=== PATIENT | female | born 1975 | race Caucasian/White ===

== ENCOUNTER 2017-07-23 12:04 | Outpatient (CLI) | payer BC ==
[2017-07-23 12:59] LABS: BASOPHILS % (AUTO) 0.4 % (0.0-2.0); EOSINOPHILS # (AUTO) 0.2 K/uL (0.0-0.7); EOSINOPHILS % (AUTO) 1.9 % (0.0-7.0); HEMATOCRIT 39.4 % (37-47); HEMOGLOBIN 12.4 G/DL (12.0-16.0); LYMPHOCYTES # (AUTO) 2.5 K/UL (0.8-4.8); LYMPHOCYTES % (AUTO) 26.5 % (20.5-51.5); MEAN CORPUSCULAR HEMOGLOBIN 28.2 UUG (27.0-31.0); MEAN CORPUSCULAR HGB CONC 31 g/dL (32.0-37.0); MEAN CORPUSCULAR VOLUME 89.6 FL (81.0-99.0); MONOCYTES # (AUTO) 0.5 K/UL (0.1-1.30); MONOCYTES % (AUTO) 5.6 % (0.0-11.0); NEUTROPHILS # (AUTO) 6.2 K/UL (1.8-8.9); NEUTROPHILS % (AUTO) 65.6 % (38.5-71.5); PLATELET COUNT (AUTO) 267 K/UL (150-450); WHITE BLOOD COUNT (AUTO) 9.4 K/UL (4.0-11.2)
[2017-07-23 13:21] LABS: BILIRUBIN,TOTAL 0.3 mg/dL (0.2-1.0); CREATININE 0.9 mg/dL (0.6-1.3); POTASSIUM 4.4 mmol/L (3.5-5.1); TOTAL PROTEIN, SERUM 7.9 g/dL (6.4-8.2)
[2017-07-23 14:29] LABS: THYROID STIMULATING HORMONE 2.731 mIU/mL (0.358-3.740)
[2017-07-25 08:06] LABS: VIT D, 25-HYDROXY 17.7 ng/mL (30.0-100.0)
== END 2017-07-23 23:59 | disposition home or self-care (01) ==
LOC: LAB 12:04
PROVIDERS: ATTEND Family Medicine
DX: Z98.84 Bariatric surgery status (principal)
CPT/HCPCS: 36415; 82306; 82746; 83550; 84443; 85025; 86677

== ENCOUNTER 2017-11-26 19:37 | Emergency (ER) | payer BC, OTHER ==
[~2017-11-26] VITALS: Ht 165.1 cm; Wt 113.4 kg
[2017-11-26] MEDS ORDERED: DICLOFENAC SOD (20:58)
--- NOTE | 2017-11-26 21:52 | NUR ---
Patient discharged to home in stable conditon. Written and verbal after care instructions given. Patient verbalizes understanding of instructions.
== END 2017-11-26 21:53 | disposition home or self-care (01) ==
LOC: ER 19:41
DX: B34.9 Viral infection, unspecified (principal); F17.210 Nicotine dependence, cigarettes, uncomplicated; Z88.5 Allergy status to narcotic agent; Z79.899 Other long term (current) drug therapy; Z90.49 Acquired absence of other specified parts of digestive tract
CPT/HCPCS: 99283; A4663

== ENCOUNTER → 2018-01-21 | Outpatient (CLI) | payer BC, OTHER ==
[~2018-01-21] MED LIST: DICLOFENAC SOD
[2018-01-21 11:03] LABS: BASOPHILS % (AUTO) 0.5 % (0.0-2.0); EOSINOPHILS # (AUTO) 0.2 K/uL (0.0-0.7); EOSINOPHILS % (AUTO) 2.1 % (0.0-7.0); HEMATOCRIT 37.4 % (31.2-41.9); HEMOGLOBIN 12.4 g/dL (10.9-14.3); LYMPHOCYTES # (AUTO) 2.3 K/uL (20.0-40.0); LYMPHOCYTES % (AUTO) 28.4 % (20.5-51.5); MEAN CORPUSCULAR HEMOGLOBIN 29.2 uug (24.7-32.8); MEAN CORPUSCULAR HGB CONC 33 g/dL (32.3-35.6); MEAN CORPUSCULAR VOLUME 88.2 fL (75.5-95.3); MONOCYTES # (AUTO) 0.5 K/uL (2.0-10.0); MONOCYTES % (AUTO) 6.5 % (0.0-11.0); NEUTROPHILS # (AUTO) 5.2 K/uL (1.8-8.9); NEUTROPHILS % (AUTO) 62.5 % (38.5-71.5); PLATELET COUNT (AUTO) 243 K/uL (179-408); RED BLOOD CELL COUNT(AUTO) 4.24 MIL/uL (3.63-4.92); WHITE BLOOD COUNT (AUTO) 8.3 K/uL (3.8-11.8)
[2018-01-21 11:26] LABS: BILIRUBIN,TOTAL 0.3 mg/dL (0.2-1.0); CREATININE 0.8 mg/dL (0.6-1.3); POTASSIUM 4.5 mmol/L (3.5-5.1); TOTAL PROTEIN, SERUM 7.8 g/dL (6.4-8.2)
[2018-01-21 12:58] LABS: THYROID STIMULATING HORMONE 2.398 mIU/mL (0.358-3.740)
[2018-01-21 14:12] LABS: *BILIRUBIN,URIN NEGATIVE (NEGATIVE); *BLOOD, URINE NEGATIVE (NEGATIVE); *CLARITY,URINE CLEAR (CLEAR); *COLOR,URINE YELLOW (YELLOW); *KETONES,URINE NEGATIVE (NEGATIVE); *PROTEIN,URINE NEGATIVE (NEGATIVE); *UROBILINOGEN,URINE 0.2 E.U./dl (NORMAL); LEUKOCYTE ESTERASE ,URINE NEGATIVE (NEGATIVE); NITRITE, URINE NEGATIVE (NEGATIVE); UGLUCOSE NEGATIVE (NEGATIVE)
[2018-01-21 14:25] LABS: RBC,URINE 0-3 /HPF (0-3); WBC,URINE 0-3 /HPF (0-3)
[2018-01-21 14:26] LABS: BACTERIA,URINE FEW /HPF (NONE SEEN); SQUAMOUS EPITHELIAL CELL,UR MANY /HPF (NONE SEEN)
[2018-01-22 04:06] LABS: TRIIODOTHYRONINE, FREE 3.3 pg/mL (2.0-4.4)
[2018-01-22 05:10] LABS: VIT D, 25-HYDROXY 17.3 ng/mL (30.0-100.0)
[2018-01-22 13:38] LABS: *OCCULT BLOOD STOOL NEGATIVE (NEGATIVE)
== END | disposition home or self-care (01) ==
LOC: LAB 10:38
DX: K21.9 Gastro-esophageal reflux disease without esophagitis (principal); R53.81 Other malaise; R53.83 Other fatigue; E55.9 Vitamin D deficiency, unspecified
CPT/HCPCS: 36415; 82306; 84443; 84481; 85025; 87086

== ENCOUNTER 2018-01-27 09:04 | Outpatient (CLI) | payer BC, OTHER ==
[2018-01-27 11:29] LABS: *RHEUMATOID FACTOR SCREEN NEGATIVE (NEGATIVE)
[2018-01-28 19:06] LABS: *SJOGREN'S ANTI-SS-A <0.2 AI (0.0-0.9); *SJOGREN'S ANTI-SS-B <0.2 AI (0.0-0.9); *SMITH ANTIBODIES <0.2 AI (0.0-0.9); ANTI-DNA(DS) AB, QN 5 IU/mL (0-9)
== END 2018-01-27 23:59 | disposition home or self-care (01) ==
LOC: LAB 09:04
PROVIDERS: ATTEND Radiology Diagnostic Radiology
DX: R06.00 Dyspnea, unspecified (principal); D64.9 Anemia, unspecified; M79.1 Myalgia
CPT/HCPCS: 36415; 71046; 82525; 82746; 85651; 86038; 86140; 86430

== ENCOUNTER → 2018-06-03 | Outpatient (CLI) | payer BC, OTHER | END | disposition home or self-care (01) | LOC: RAD 14:06 | DX: M25.551 Pain in right hip (principal); M25.552 Pain in left hip | CPT/HCPCS: 73521 ==

== ENCOUNTER 2018-12-15 19:30 | Inpatient (IN) | payer BC, OTHER ==
[~2018-12-15] VITALS: Ht 165.1 cm; Wt 123.4 kg
[2018-12-15] MEDS ORDERED: GABAPENTIN 100 MG CAPSULE (19:46)
[2018-12-15] MEDS ORDERED: GABAPENTIN 300 MG CAPSULE (19:46)
[2018-12-15] MEDS ORDERED: IBUP800T54 PO (19:46)
[2018-12-15] MEDS ORDERED: ASPIRIN 325 MG TABLET ONE (19:59)
[2018-12-15] MEDS ORDERED: IV NORMAL SALINE 1000 ML BAG IV ONE (20:00)
[2018-12-15] MEDS ORDERED: ASPIRIN 325 MG TABLET PO ONE (20:00)
[2018-12-15] MEDS ORDERED: NITROGLYCERIN 0.4 MG/TAB BOTTLE SL ONE ×2 (20:00)
[2018-12-15 20:10] LABS: BASOPHILS # (AUTO) 0.1 K/uL (0.0-8.0); BASOPHILS % (AUTO) 0.6 % (0.0-2.0); EOSINOPHILS # (AUTO) 0.3 K/uL (0.0-0.7); EOSINOPHILS % (AUTO) 2.4 % (0.0-7.0); HEMATOCRIT 35.5 % (31.2-41.9); HEMOGLOBIN 11.6 g/dL (10.9-14.3); LYMPHOCYTES # (AUTO) 2.8 K/uL (20.0-40.0); LYMPHOCYTES % (AUTO) 22.8 % (20.5-51.5); MEAN CORPUSCULAR HGB CONC 33 g/dL (32.3-35.6); MEAN CORPUSCULAR VOLUME 86.1 fL (75.5-95.3); MONOCYTES # (AUTO) 0.8 K/uL (2.0-10.0); MONOCYTES % (AUTO) 6.2 % (0.0-11.0); NEUTROPHILS # (AUTO) 8.4 K/uL (1.8-8.9); PLATELET COUNT (AUTO) 234 K/uL (179-408); RED BLOOD CELL COUNT(AUTO) 4.12 MIL/uL (3.63-4.92); WHITE BLOOD COUNT (AUTO) 12.4 K/uL (3.8-11.8)
[2018-12-15 20:19] LABS: CREATININE 0.9 mg/dL (0.6-1.3); POTASSIUM 3.9 mmol/L (3.5-5.1)
[2018-12-15 20:26] LABS: BILIRUBIN,DIRECT 0.1 mg/dL (0.0-0.2); BILIRUBIN,TOTAL 0.2 mg/dL (0.2-1.0); TOTAL PROTEIN, SERUM 8.1 g/dL (6.4-8.2)
[2018-12-15] MEDS ORDERED: ONDANSETRON 4 MG/2 ML VIAL IV PRN (22:00)
[2018-12-15] MEDS ORDERED: ZOLPIDEM 5 MG TABLET PO PRN (22:00)
[2018-12-15 22:25] VITALS: BP 144/75
--- NOTE | 2018-12-15 22:30 | NUR ---
RECEIVED PATIENT, ADMISSION ASSESSMENT COMPLETED. PATIENT SEEN BY , RECEIVED ORDERS AND CARRIED OUT. [employer] INS[employer]ANCE UNDERWRITER APPLIED. PATIENT IS SINUS RHYTHM. DENIES CHEST PAIN AT THIS TIME. IV PATENT AND INTACT ON RIGHT FOREARM. VS ARE STABLE. CALL LIGHT WITHIN REACH. LATE NIGHT DINNER TRAY PROVIDED. KEPT PATIENT COMFORTABLE. ROOM FREE OF CLUTTER. NIGHT MEDICATION PROVIDED AND TOLERATED WELL. WILL CONTINUE TO MONITOR.
[2018-12-15] MEDS: GABAPENTIN 300 MG CAPSULE PO SCH (22:32)
[2018-12-15] MEDS: ACETAMINOPHEN 325 MG TABLET PO PRN (22:32)
[2018-12-15] MEDS ORDERED: diphenhydrAMINE 50 MG CAPSULE PO PRN (22:45)
--- NOTE | 2018-12-15 23:00 | NUR ---
Patient c/o headache, Tylenol 650 mg po given. Discussed about side effects of Nitroglycerin pill. patient verbalized understanding.
[2018-12-16] VITALS: BP 144/75
--- NOTE | 2018-12-16 | NUR ---
Patient stated slight relief from Tylenol. Ice pack provided. Sinus rhythm on Tele.
[2018-12-16 04:00] VITALS: BP 119/59
[2018-12-16] MEDS: PANTOPRAZOLE SODIUM 40 MG TABLET.DR PO SCH (06:15)
[2018-12-16] MEDS: ACETAMINOPHEN 325 MG TABLET PO PRN ×2 (06:16→17:35)
--- NOTE | 2018-12-16 06:30 | NUR ---
PATIENT STILL C/O ON & OFF HEADACHE, TYLENOL 650 MG P.O ADM. DENIES CHEST PAIN AT THIS TIME. SINUS RHYTHM ON TELE
[2018-12-16 07:07] LABS: BASOPHILS # (AUTO) 0.1 K/uL (0.0-8.0); BASOPHILS % (AUTO) 0.8 % (0.0-2.0); EOSINOPHILS # (AUTO) 0.3 K/uL (0.0-0.7); EOSINOPHILS % (AUTO) 3.2 % (0.0-7.0); HEMATOCRIT 34.1 % (31.2-41.9); HEMOGLOBIN 11.3 g/dL (10.9-14.3); LYMPHOCYTES # (AUTO) 2.3 K/uL (20.0-40.0); LYMPHOCYTES % (AUTO) 27.8 % (20.5-51.5); MEAN CORPUSCULAR HEMOGLOBIN 28.7 uug (24.7-32.8); MEAN CORPUSCULAR HGB CONC 33 g/dL (32.3-35.6); MEAN CORPUSCULAR VOLUME 86.9 fL (75.5-95.3); MONOCYTES # (AUTO) 0.6 K/uL (2.0-10.0); MONOCYTES % (AUTO) 7.1 % (0.0-11.0); NEUTROPHILS % (AUTO) 61.1 % (38.5-71.5); PLATELET COUNT (AUTO) 220 K/uL (179-408); RED BLOOD CELL COUNT(AUTO) 3.93 MIL/uL (3.63-4.92); WHITE BLOOD COUNT (AUTO) 8.1 K/uL (3.8-11.8)
[2018-12-16 07:15] LABS: CREATININE 0.7 mg/dL (0.6-1.3); PHOSPHOROUS 3.7 mg/dL (2.5-4.9)
--- NOTE | 2018-12-16 07:29 | NUR ---
PATIENT AO 4, NO DISTRESS, COMPLAINED OF HEADACHE AND ON AND OFF CHEST PAIN SAFETY REINFORCED
[2018-12-16 07:34] LABS: THYROID STIMULATING HORMONE 3.003 mIU/mL (0.358-3.740)
[2018-12-16] MEDS: ASPIRIN EC 81 MG TABLET.DR PO SCH (08:27)
[2018-12-16] MEDS: GABAPENTIN 100 MG CAPSULE PO SCH ×2 (08:30→17:00)
[2018-12-16] MEDS ORDERED: ONDANSETRON 4 MG/2 ML VIAL IV ONE (09:59)
[2018-12-16] MEDS: MORPHINE SULFATE 2 MG/1 ML DISP.SYRIN IV PRN (10:52)
[2018-12-16 11:04] VITALS: BP 120/73
[2018-12-16 12:00] LABS: *BILIRUBIN,URIN NEGATIVE (NEGATIVE); *CLARITY,URINE CLEAR (CLEAR); *COLOR,URINE YELLOW (YELLOW); *KETONES,URINE NEGATIVE (NEGATIVE); *UROBILINOGEN,URINE 0.2 E.U./dl (NORMAL); LEUKOCYTE ESTERASE ,URINE NEGATIVE (NEGATIVE); NITRITE, URINE NEGATIVE (NEGATIVE); PH,URINE 5.5 (5.0-8.0); UGLUCOSE NEGATIVE (NEGATIVE)
[2018-12-16 12:05] LABS: *BLOOD, URINE TRACE LYSED (NEGATIVE)
[2018-12-16 12:12] LABS: BACTERIA,URINE FEW /HPF (NONE SEEN); SQUAMOUS EPITHELIAL CELL,UR FEW /HPF (NONE SEEN)
[2018-12-16 12:13] LABS: RBC,URINE 0-3 /HPF (0-3); WBC,URINE 0-3 /HPF (0-3)
[2018-12-16] MEDS: KETOROLAC TROMETHAMINE 30 MG INJ IVP PRN ×2 (14:23→20:08)
[2018-12-16 15:05] VITALS: BP 116/50
--- NOTE | 2018-12-16 16:32 | NUR ---
[facility] ambulance set for picking crew supervisor on 12/17/18 at 0800 to take patient to [facility] for CTA. Trip #[id number]
--- NOTE | 2018-12-16 18:28 | NUR ---
Patient is cooperative AO 4, no distress , headache complained and Kerol was successful with relive, Tylenol was given in between dosages No reaction to med noted Safety maintained this shift
[2018-12-16 19:23] VITALS: BP 120/66
--- NOTE | 2018-12-16 19:30 | NUR ---
Received patient awake, alert, oriented and ambulatory. Patient is not in any form of distress. Noted with IV access, intact. Noted patient for CT Angiogram and EGD tomorrow morning, will instruct patient to remain NPO after midnight. Will monitor for recurrence of chest pain, headache and nausea.
[2018-12-16] MEDS: METOPROLOL TARTRATE 50 MG TABLET PO SCH (20:07)
[2018-12-16] MEDS: GABAPENTIN 300 MG CAPSULE PO SCH (20:17)
[2018-12-16] MEDS ORDERED: IV D5 1/2 NS 1000 ML 1,000 ML IV PRN (21:30)
--- NOTE | 2018-12-16 22:30 | NUR ---
Another IV access started on the left forearm,20g in preparation for CT angiogram this morning.
[2018-12-16 23:49] VITALS: BP 102/46
[2018-12-17] MEDS: KETOROLAC TROMETHAMINE 30 MG INJ IVP PRN ×2 (03:11→12:42)
[2018-12-17 03:38] VITALS: BP 127/65
--- NOTE | 2018-12-17 06:00 | NUR ---
Stool sample sent for occult blood. Patient only able to sleep well for 2-3 hours. Maintained on NPO after midnight for procedures this morning. Patient to be picked up at 0800. Patient was able to take a shower. Noted she now has IV accesses on each arm, both patent and intact. Attended all needs. Pain medication given for headache. Ensured safety and comfort.
[2018-12-17] MEDS: PANTOPRAZOLE SODIUM 40 MG TABLET.DR PO SCH (06:06)
[2018-12-17] MEDS: MORPHINE SULFATE 2 MG/1 ML DISP.SYRIN IV PRN (06:38)
--- NOTE | 2018-12-17 07:30 | NUR ---
PATIENT IS AO 4, NO DISTRESS, SAFETY REINFORCED, TWO IV ACCESS FOR ANGIO, AMBULANCE SCHEDULED FOR 0800
[2018-12-17] MEDS: GABAPENTIN 100 MG CAPSULE PO SCH ×2 (07:59→17:00)
[2018-12-17] MEDS: ASPIRIN EC 81 MG TABLET.DR PO SCH (07:59)
--- NOTE | 2018-12-17 08:00 | NUR ---
AMBULANCE TOOK THE PATIENT, ALL THE MEDS WERE HELD INCLUDING METOPROLOL BC HR WAS BELOW 60
[2018-12-17] MEDS: METOPROLOL TARTRATE 50 MG TABLET PO SCH (08:28)
[2018-12-17 10:09] LABS: *OCCULT BLOOD STOOL NEGATIVE (NEGATIVE)
[2018-12-17] MEDS ORDERED: FENTANYL CITRATE 100 MCG/2 ML AMPUL ONE ×2 (10:56→17:24)
[2018-12-17] MEDS ORDERED: MIDAZOLAM HCL 2 MG/2 ML VIAL ONE ×2 (10:57→17:23)
[2018-12-17 11:00] VITALS: BP 122/68
--- NOTE | 2018-12-17 12:00 | NUR ---
PATIENT IS BACK FROM ANGIO VS WNL
[2018-12-17 15:02] VITALS: BP 128/57
--- NOTE | 2018-12-17 18:00 | NUR ---
PATIENT WENT TO EGD BY BED
--- NOTE | 2018-12-17 19:13 | NUR ---
PATIENT IS AO 4, NO DISTRESS, SAFETY REINFORCED, TWO IV ACCESS, AT EGD AT THE MOMENT SAFETY MAINTAINED
[2018-12-17 19:50] VITALS: BP 125/48
--- NOTE | 2018-12-17 20:00 | NUR ---
Received patient back from EGD procedure, patient is alert, oriented and ambulatory and in stable condition. Noted still with IV access at right arm. Patient advised on clear liquid diet and to progress diet as tolerated. Patient requesting to be discharged today, awaiting MD orders. Will continue to monitor.
[2018-12-17] MEDS ORDERED: ZOLP5TAB8 PO (20:51)
[2018-12-17] MEDS ORDERED: LIPA1CAP15 PO (20:51)
[2018-12-17] MEDS ORDERED: PANT40TA2 PO (20:51)
--- NOTE | 2018-12-17 21:22 | NUR ---
Noted with discharge order. Processed discharge papers and had patient signed. Prescription and written instructions handed over to patient. Patient removed her IV access. Patient discharged accompanied by her daughter in stable condition.
[2018-12-17] MEDS ORDERED: LIDOCAINE-MPF 2% 5 ML VIAL IJ ONE (21:24)
[2018-12-17] MEDS ORDERED: IV LACTATED RINGERS SOLUTION 1,000 ML BAG IV ONE (21:24)
[2018-12-17] MEDS ORDERED: PROPOFOL 200 MG/20 ML BOTTLE IV ONE (21:24)
[2018-12-17] MEDS ORDERED: STERILE WATER FOR INJ IV ONE (21:24)
== END 2018-12-17 21:25 | disposition home or self-care (01) | DRG 394 ==
LOC: ER 19:32 → TELE3 21:42 → MEDSURG3 12-17 16:00
PROVIDERS: ADMIT Internal Medicine; ATTEND Internal Medicine
PROC: 0DB98ZX Excision of Duodenum, Via Natural or Artificial Opening Endoscopic, Diagnostic (ICD-10-PCS; principal; 2018-12-17)
PROC: 0DB48ZX Excision of Esophagogastric Junction, Via Natural or Artificial Opening Endoscopic, Diagnostic (ICD-10-PCS; principal; 2018-12-17)
PROC: B2211ZZ Computerized Tomography (CT Scan) of Multiple Coronary Arteries using Low Osmolar Contrast (ICD-10-PCS; principal; 2018-12-17)
PROC: 0D738ZZ Dilation of Lower Esophagus, Via Natural or Artificial Opening Endoscopic (ICD-10-PCS; principal; 2018-12-17)
DX: K95.09 Other complications of gastric band procedure (principal); Z68.42 Body mass index [BMI] 45.0-49.9, adult; K22.2 Esophageal obstruction; K29.60 Other gastritis without bleeding; K21.0 Gastro-esophageal reflux disease with esophagitis; Z98.84 Bariatric surgery status; Y83.2 Surgical operation with anastomosis, bypass or graft as the cause of abnormal reaction of the patient, or of later complication, without mention of misadventure at the time of the procedure; Y92.89 Other specified places as the place of occurrence of the external cause; Z87.891 Personal history of nicotine dependence; E66.01 Morbid (severe) obesity due to excess calories; R73.03 Prediabetes; E78.5 Hyperlipidemia, unspecified; Z82.49 Family history of ischemic heart disease and other diseases of the circulatory system; Z83.49 Family history of other endocrine, nutritional and metabolic diseases; Z82.5 Family history of asthma and other chronic lower respiratory diseases; M19.90 Unspecified osteoarthritis, unspecified site; I10 Essential (primary) hypertension; G89.29 Other chronic pain; M54.30 Sciatica, unspecified side; D72.829 Elevated white blood cell count, unspecified
CPT/HCPCS: 36415; 70030-TC; 71045; 83550; 83735; 84100; 84443; 85025; 85730; 87086; 88342; 93005; 93307; A4217; A4663; G0378; J1885; J2250; J2270; J2405; J3010; J3490; J7030; J7120; Q0163

== ENCOUNTER 2019-10-01 08:42 | Emergency (ER) | END 2019-10-01 09:29 | disposition home or self-care (01) | DX: H66.91 Otitis media, unspecified, right ear (principal); J40 Bronchitis, not specified as acute or chronic; J02.9 Acute pharyngitis, unspecified; Z79.899 Other long term (current) drug therapy ==

== ENCOUNTER 2020-01-10 13:23 | Emergency (ER) | payer BC, OTHER ==
[~2020-01-10 13:23] MED LIST changes: -DICLOFENAC SOD; +GABAPENTIN 100 MG CAPSULE; +GABAPENTIN 300 MG CAPSULE; +LIPA1CAP15 PO; +PANT40TA2 PO; +ZOLP5TAB8 PO
--- NOTE | 2020-01-10 14:15 | NUR ---
nasal swab for covid done and sent to lab
== END 2020-01-10 14:16 | disposition home or self-care (01) ==
LOC: ER 13:23
DX: Z03.818 Encounter for observation for suspected exposure to other biological agents ruled out (principal)

== ENCOUNTER 2020-01-12 13:17 | Emergency (ER) | payer BC, OTHER ==
[~2020-01-12] VITALS: Ht 167.6 cm; Wt 90.7 kg
--- NOTE | 2020-01-12 13:52 | NUR ---
PATIENT WAS SEEN BY MD. SHE IS AWAKE AND ALERT ON NO DISTRESS. NO SOB OR DIFFICULTY BREATHING REPORTED.
[2020-01-12] MEDS ORDERED: IBUPROFEN 800 MG TABLET ONE (13:57)
[2020-01-12] MEDS ORDERED: IBUPROFEN 800 MG TABLET PO ONE (14:00)
--- NOTE | 2020-01-12 14:22 | NUR ---
MEDICATION GIVEN ORDERED. CORONAVIRUS SWAB DONE. DC, RX AND FOLLOW UP INSTRUCTIONS GIVEN AND EXPLAINED TO PATIENT WHO STATES SHE UNDERSTANDS ALL INSTRUCTIONS
== END 2020-01-12 14:45 | disposition home or self-care (01) ==
LOC: ER 13:17
DX: R05 Cough (principal); Z20.828 Contact with and (suspected) exposure to other viral communicable diseases; R07.81 Pleurodynia; M35.3 Polymyalgia rheumatica
CPT/HCPCS: 36415; 71045; A4663

== ENCOUNTER 2020-04-20 11:47 | Emergency (ER) | payer BC, OTHER ==
[~2020-04-20] VITALS: Ht 167.6 cm; Wt 90.7 kg
[2020-04-20] MEDS ORDERED: DIPH25CA83 PO (12:03)
[2020-04-20] MEDS ORDERED: GABA300C PO (12:03)
[2020-04-20 12:11] LABS: BASOPHILS # (AUTO) 0.1 K/uL (0.0-8.0); BASOPHILS % (AUTO) 0.6 % (0.0-2.0); EOSINOPHILS # (AUTO) 0.2 K/uL (0.0-0.7); EOSINOPHILS % (AUTO) 2.1 % (0.0-7.0); HEMATOCRIT 39.9 % (31.2-41.9); HEMOGLOBIN 12.8 g/dL (10.9-14.3); LYMPHOCYTES # (AUTO) 2.1 K/uL (20.0-40.0); LYMPHOCYTES % (AUTO) 22.3 % (20.5-51.5); MEAN CORPUSCULAR HEMOGLOBIN 27.7 uug (24.7-32.8); MEAN CORPUSCULAR HGB CONC 32 g/dL (32.3-35.6); MEAN CORPUSCULAR VOLUME 86.5 fL (75.5-95.3); MONOCYTES # (AUTO) 0.5 K/uL (2.0-10.0); MONOCYTES % (AUTO) 5.5 % (0.0-11.0); NEUTROPHILS # (AUTO) 6.6 K/uL (1.8-8.9); NEUTROPHILS % (AUTO) 69.5 % (38.5-71.5); PLATELET COUNT (AUTO) 266 K/uL (179-408); RED BLOOD CELL COUNT(AUTO) 4.62 MIL/uL (3.63-4.92); WHITE BLOOD COUNT (AUTO) 9.5 K/uL (3.8-11.8)
--- NOTE | 2020-04-20 12:14 | NUR ---
Patient is AOx4, c/o intermittent feelings of palpitations, "shivers", chills, tingling sensation to bilateral upper shoulders radiating to both arms with feelings of anxiety, denies chest pains, no nausea, skin is warm and dry, respiration:easy. Maintained on continuous cardiac & spO2 monitoring with alarms set, on & audible.
[2020-04-20 12:21] LABS: MAGNESIUM 2.3 mg/dL (1.8-2.4)
[2020-04-20 12:22] LABS: CREATININE 0.9 mg/dL (0.6-1.3)
[2020-04-20 12:28] LABS: BILIRUBIN,DIRECT 0.1 mg/dL (0.0-0.2); BILIRUBIN,TOTAL 0.3 mg/dL (0.2-1.0); TOTAL PROTEIN, SERUM 8.2 g/dL (6.4-8.2)
[2020-04-20 12:59] LABS: THYROID STIMULATING HORMONE 2.062 mIU/mL (0.358-3.740)
--- NOTE | 2020-04-20 13:24 | NUR ---
Patient is resting comfortably on gurney while using her personal electronic device, NAD, pending discharge papers.
--- NOTE | 2020-04-20 13:39 | NUR ---
No tachycardic episodes while in ER, for discharge@this time.
--- NOTE | 2020-04-20 13:40 | NUR ---
Copies of all the tests' results were given to patient. COVID-19 results pending. Patient gave her reliable contact number for this result. Patient discharged to home in stable condition & steady gait. Written and verbal after care instructions given to patient. Patient verbalized understanding & compliance of instructions. Stressed follow up with primary doctor or return to ER for worsening s/s.
== END 2020-04-20 13:44 | disposition home or self-care (01) ==
LOC: ER 11:47
DX: R00.0 Tachycardia, unspecified (principal); R00.2 Palpitations; R94.31 Abnormal electrocardiogram [ECG] [EKG]; M35.3 Polymyalgia rheumatica; Z82.49 Family history of ischemic heart disease and other diseases of the circulatory system; Z20.828 Contact with and (suspected) exposure to other viral communicable diseases; R25.1 Tremor, unspecified; Z98.84 Bariatric surgery status; F41.9 Anxiety disorder, unspecified; F32.9 Major depressive disorder, single episode, unspecified; Z79.899 Other long term (current) drug therapy
CPT/HCPCS: 36415; 70030-TC; 83735; 84443; 85025; 93005; A4663; J7030

== ENCOUNTER 2020-06-20 15:29 | Emergency (ER) | payer BC, OTHER ==
[~2020-06-20] VITALS: Ht 167.6 cm; Wt 90.7 kg
[~2020-06-20 15:29] MED LIST changes: +DIPH25CA83 PO; +GABA300C PO; -GABAPENTIN 100 MG CAPSULE; -GABAPENTIN 300 MG CAPSULE; -LIPA1CAP15 PO; -ZOLP5TAB8 PO
--- NOTE | 2020-06-20 17:19 | NUR ---
Patient is resting comfortably on gurney while using using her personal electronic device.
--- NOTE | 2020-06-20 17:38 | NUR ---
Patient discharged to home in stable condition. Written and verbal after care instructions given to patient. Patient verbalized understanding & compliance of instructions. Stressed follow up with her primary doctor or return to ER for worsening s/s.
== END 2020-06-20 17:38 | disposition home or self-care (01) ==
LOC: ER 15:29
DX: R51 Headache (principal); R05 Cough; R53.83 Other fatigue; Z20.828 Contact with and (suspected) exposure to other viral communicable diseases; M35.3 Polymyalgia rheumatica; Z79.899 Other long term (current) drug therapy
CPT/HCPCS: 71045; 99284; U0003; A4663

== ENCOUNTER 2020-07-21 10:51 | Emergency (ER) | payer BC, OTHER ==
[~2020-07-21] VITALS: Ht 167.6 cm; Wt 90.7 kg
--- NOTE | 2020-07-21 11:05 | NUR ---
Dr. Woodruff at bedside for MSE
--- NOTE | 2020-07-21 11:16 | NUR ---
Patient unable to give urine at this time. Patient agrees to sign waiver form
--- NOTE | 2020-07-21 11:59 | NUR ---
Patient discharged to home in stable condition. Written and verbal after care instructions given. Patient verbalizes understanding of instructions. Stressed follow up or return to ER for worsening s/s.
[2020-07-21 12:00] VITALS: BP 134/95
== END 2020-07-21 12:00 | disposition home or self-care (01) ==
LOC: ER 10:51
DX: M51.17 Intervertebral disc disorders with radiculopathy, lumbosacral region (principal); M35.3 Polymyalgia rheumatica; Z79.899 Other long term (current) drug therapy; M43.8X6 Other specified deforming dorsopathies, lumbar region; S32.028S Other fracture of second lumbar vertebra, sequela; X58.XXXS Exposure to other specified factors, sequela
CPT/HCPCS: 72100; A4663

== ENCOUNTER 2020-10-18 20:29 | Emergency (ER) | payer BC, OTHER ==
[~2020-10-18 20:29] MED LIST changes: +SERT50TA PO
--- NOTE | 2020-10-18 21:01 | NUR ---
PT CALLED 3 TIMES NO ANSWER. PT LEFT W/O BEING TRIAGED
== END 2020-10-18 21:02 | disposition left against medical advice (07) ==
LOC: ER 20:31
DX: Z75.3 Unavailability and inaccessibility of health-care facilities (principal)

== ENCOUNTER 2021-06-18 15:05 | Outpatient (CLI) | payer BC, OTHER ==
[2021-06-18 15:32] LABS: HEMATOCRIT 38.5 % (31.2-41.9); MEAN CORPUSCULAR HEMOGLOBIN 29.8 uug (24.7-32.8); PLATELET COUNT (AUTO) 234 K/uL (179-408)
[2021-06-18 15:44] LABS: BILIRUBIN,DIRECT 0.1 mg/dL (0.0-0.2); BILIRUBIN,TOTAL 0.3 mg/dL (0.2-1.0); TOTAL PROTEIN, SERUM 7.9 g/dL (6.4-8.2)
[2021-06-18 15:54] LABS: THYROID STIMULATING HORMONE 2.009 mIU/mL (0.358-3.740)
== END 2021-06-18 23:59 | disposition home or self-care (01) ==
LOC: LAB 15:05
PROVIDERS: ATTEND Obstetrics & Gynecology
DX: Z20.2 Contact with and (suspected) exposure to infections with a predominantly sexual mode of transmission (principal)
CPT/HCPCS: 36415; 84443; 85025; 86592; 86694; 86803; 87806

== ENCOUNTER 2021-09-20 17:07 | Outpatient (CLI) | payer BC, OTHER ==
[2021-09-20 17:36] LABS: HEMATOCRIT 36.6 % (31.2-41.9); MEAN CORPUSCULAR HEMOGLOBIN 29.7 uug (24.7-32.8); MEAN CORPUSCULAR VOLUME 90.8 fL (75.5-95.3); PLATELET COUNT (AUTO) 236 K/uL (179-408)
[2021-09-20 17:40] LABS: BILIRUBIN,TOTAL 0.2 mg/dL (0.2-1.0); CREATININE 0.8 mg/dL (0.6-1.3); POTASSIUM 4.6 mmol/L (3.5-5.1); TOTAL PROTEIN, SERUM 7.8 g/dL (6.4-8.2)
[2021-09-20 17:48] LABS: THYROID STIMULATING HORMONE 2.69 mIU/mL (0.358-3.740)
== END 2021-09-20 23:59 | disposition home or self-care (01) ==
LOC: LAB 17:07
PROVIDERS: ATTEND Internal Medicine
DX: I10 Essential (primary) hypertension (principal); Z79.899 Other long term (current) drug therapy
CPT/HCPCS: 36415; 82306; 84443; 85025

== ENCOUNTER 2021-09-23 20:09 | Emergency (ER) | payer BC, OTHER ==
[~2021-09-23] VITALS: Ht 165.1 cm; Wt 113.4 kg
--- NOTE | 2021-09-23 20:55 | NUR ---
DR. BARRAGAN AT BEDSIDE, MSE IN PROGRESS.
[2021-09-23] MEDS ORDERED: IV NORMAL SALINE 1000 ML BAG IV ONE (21:15)
[2021-09-23] MEDS ORDERED: ONDANSETRON 4 MG/2 ML VIAL IV ONE (21:15)
--- NOTE | 2021-09-23 21:21 | NUR ---
LAB AT BEDSIDE.
[2021-09-23] MEDS ORDERED: ONDANSETRON 4 MG/2 ML VIAL ONE (21:30)
[2021-09-23 21:36] LABS: HEMATOCRIT 41.5 % (31.2-41.9); MEAN CORPUSCULAR HEMOGLOBIN 29.7 uug (24.7-32.8); MEAN CORPUSCULAR VOLUME 89.9 fL (75.5-95.3); PLATELET COUNT (AUTO) 217 K/uL (179-408)
[2021-09-23 21:47] LABS: CARBON DIOXIDE 20 mmol/L (21-32); CHLORIDE 105 mmol/L (98-107); CREATININE 0.8 mg/dL (0.6-1.3); GLUCOSE 172 mg/dL (74-106); POTASSIUM 3.9 mmol/L (3.5-5.1); UREA NITROGEN, BLOOD 20 mg/dL (7-18)
[2021-09-23 21:53] LABS: ALANINE AMINOTRANSFERASE 24 U/L (14-59); ALKALINE PHOSPHATASE 56 U/L (50-136); ASPARTATE AMINOTRANSFERASE 16 U/L (15-37); BILIRUBIN,DIRECT 0.1 mg/dL (0.0-0.2); BILIRUBIN,TOTAL 0.3 mg/dL (0.2-1.0); LIPASE 72 U/L (73-393); TOTAL PROTEIN, SERUM 8.6 g/dL (6.4-8.2)
[2021-09-23] MEDS ORDERED: METOCLOPRAMIDE HCL 10 MG/2 ML VIAL IV ONE (22:15)
[2021-09-23] MEDS ORDERED: METOCLOPRAMIDE HCL 10 MG/2 ML VIAL ONE (22:23)
[2021-09-23] MEDS ORDERED: DIATR MEGLU/DIATRIZOATE SODIUM 120 ML BOTTLE PO ONE (22:30)
--- NOTE | 2021-09-23 22:31 | NUR ---
GASTROGRAFIN 66/10 SOLUTION GIVEN BY VULCAN CREWMEMBER.
--- NOTE | 2021-09-23 22:47 | NUR ---
PT BEING TAKEN DOWN TO CT.
[2021-09-23] MEDS ORDERED: PROCHLORPERAZINE EDISYLATE 10 MG/2 ML VIAL ONE (23:55)
[2021-09-23] MEDS ORDERED: diphenhydrAMINE 50 MG/1 ML VIAL ONE (23:56)
[2021-09-23] MEDS ORDERED: PANT40TA2 PO (23:59)
[2021-09-23] MEDS ORDERED: ONDA4TAB5 PO (23:59)
[2021-09-24] MEDS ORDERED: diphenhydrAMINE 50 MG/1 ML VIAL IV ONE
[2021-09-24] MEDS ORDERED: PROCHLORPERAZINE EDISYLATE 10 MG/2 ML VIAL IV ONE
--- NOTE | 2021-09-24 00:07 | NUR ---
Patient discharged to home in stable condition. Written and verbal after care instructions given. Patient verbalizes understanding of instructions. Stressed follow up or return to ER for worsening s/s. Steady gait. Improved symptoms of her nausea and vomitting. Denies any pain upon discharge. Accompanied by family.
[2021-09-24 00:13] VITALS: BP 124/78
== END 2021-09-24 00:13 | disposition home or self-care (01) ==
LOC: ER 20:10
DX: R07.89 Other chest pain (principal); K20.90 Esophagitis, unspecified without bleeding; Z90.49 Acquired absence of other specified parts of digestive tract; Z97.5 Presence of (intrauterine) contraceptive device; Z98.84 Bariatric surgery status; R16.0 Hepatomegaly, not elsewhere classified; Z82.49 Family history of ischemic heart disease and other diseases of the circulatory system; M35.3 Polymyalgia rheumatica; E66.01 Morbid (severe) obesity due to excess calories; Z68.41 Body mass index [BMI] 40.0-44.9, adult; E78.5 Hyperlipidemia, unspecified; F17.210 Nicotine dependence, cigarettes, uncomplicated; R73.03 Prediabetes
CPT/HCPCS: 36415; 71045; 74177; 80048; 80076; 83690; 84484; 84702; 85025; 96361; 96374; 96375; 99285; J0780; J1200; J2405; J2765; Q9963; Q9967; 70030-TC; A4663; J7030